=== PATIENT | female | born 1990 | race Caucasian/White ===

== ENCOUNTER 2016-05-13 09:12 | Inpatient (IN) | payer MEDICAID, OTHER ==
[~2016-05-13] VITALS: Ht 172.7 cm; Wt 88.8 kg
[~2016-05-13 09:12] MED LIST: BIRTH CONTROL PILLS; IBUP-1542 PO
[2016-05-13 09:21] VITALS: BP 109/69; PULSE 96; RESP 19; Ht 172.7 cm; Wt 88.8 kg
--- NOTE | 2016-05-13 10:28 | RADRPT ---
PROCEDURE: OB ultrasound for biophysical profile CLINICAL INDICATION: Spotting. . TECHNIQUE: Multiple sonographic images of the pelvis were obtained. Transabdominal view of the gr avid uterus are available for review. The images were reviewed on a PACS workstation. COMPARISON: None available FINDINGS: breathing movement = 2/2 tone = 2/2 motion = 2/2 KARLENE = 2/2 KARLENE = 11.4 cm Single live intrauterine with cardiac activity. heart rate equals 128 beats p er minute. Presentation is cephalic. The placenta is posterior. IMPRESSION: 1. Single viable intrauterine gestation. 2. Biophysical profile = 8/8. 3. KARLENE = 11.4 cm. RPTAT: KK .Sai Hodge MD, MD Date Time Electronically viewed and signed by .Sai Hodge MD, MD on 05/13/2016 10:27 .B/
--- NOTE | 2016-05-13 10:31 | RADRPT ---
PROCEDURE: US OB - Limited weight. CLINICAL INDICATION: Spotting. . TECHNIQUE: Multiple sonographic images of the pelvis were obtained. Transabdominal imaging only w as performed. The images were reviewed on a PACS workstation. COMPARISON: No prior studies are available for comparison. FINDINGS: There is a single viable intrauterine gestation. Cardiac activity is present with 122 beats per min [place]. There is a cephalic presentation. Measurements were made in order to determine age. Evaluation is limited as the head was very low in the pelvis and head circumference and BPD or not accurately evaluated. The results are as follows: AC = 30.98 cm FL = 6.83 .cm Estimated gestational age of approximately 35 weeks 0 days +/ - 2 weeks 3 days by ultrasound evalua tion The estimated date of delivery is 06/17/2016 by ultrasound evaluation. The EFW = 2608 g +/- 417 g. The placenta is posterior. There is no evidence of placenta previa. IMPRESSION: 1. Single viable intrauterine gestation of approximately 35 weeks 0 days with estimated date of del anthony of 06/17/2016 by ultrasound evaluation. 2. The estimated weight is 2608 g (34%) . RPTAT: KK .Sai Hodge MD, MD Date Time Electronically viewed and signed by .Sai Hodge MD, MD on 05/13/2016 10:30 .B/
[2016-05-13 10:42] LABS: BASOPHILS % 0.3 % (0.0-2.0); EOSINOPHILS # 0.1 10^3/ul (0.0-0.5); EOSINOPHILS % 0.6 % (0.0-7.0); HEMOGLOBIN 11.9 g/dl (12.0-16.0); LYMPHOCYTES # 1.3 10^3/ul (0.8-2.9); LYMPHOCYTES % 12.4 % (15.0-51.0); MEAN CORPUSCULAR HEMOGLOBIN 31.6 pg (29.0-33.0); MEAN CORPUSCULAR HGB CONC 34.2 g/dl (32.0-37.0); MEAN CORPUSCULAR VOLUME 92.4 fl (82.0-101.0); MEAN PLATELET VOLUME 7.9 fl (7.4-10.4); MONOCYTE # 0.7 10^3/ul (0.3-0.9); NEUTROPHILS % 79.7 % (39.0-77.0); PLATELET COUNT 262 10^3/UL (140-440); RED BLOOD COUNT 3.78 10^6/ul (4.20-5.40); RED CELL DISTRIBUTION WIDTH 13.6 % (11.5-14.5); UNCORRECTED WBC 10.1 10^3/ul (4.8-10.8); WHITE BLOOD COUNT 10.1 10^3/ul (4.8-10.8)
[2016-05-13 10:43] LABS: CONDITION 1
--- NOTE | 2016-05-13 10:58 | HP ---
Date/Time of Note Date/Time of Note DATE: 05/13/16 TIME: 10:57 OB - History Hx of Present Free Text/Dictation @35+wks GA with labor : 1 Para: 0 Care: Good Care Ultrasounds: Normal mid trimester US Obstetrical Complications: None Medical Complications: None Past Family/Social History * Past Medical, Surgical, Family and Obstetric Histories reviewed from chart. OB Admission Exam Vital Signs Vital Signs Vital Signs Date Time Temp Pulse Resp B/P Pulse Ox O2 Delivery O2 Flow Rate FiO2 05/13/16 09:21 98.6 96 19 109/69 Room Air Physical Exam HEENT: WNL Abdomen: WNL Extremities: Normal Reflexes: Normal Cervical Dilatation: 4cm Effacement: 75% Station: -1 Membranes: Intact Heart Rate: 140's Accelerations: Accelerations Present Decelerations: No Decelerations Contractions on Admission: >10 Minutes Apart Last 72 hours Lab Results CBC & BMP 05/13/16 10:30 OB Assessment/Plan Reason for admission: observation Plan: Expectant Management CHASE LEZAMA M.D. May 13, 2016 10:58
[2016-05-13] MEDS ORDERED: LACTATED RINGER'S 1,000 ML IV PRN (11:15)
[2016-05-13] MEDS ORDERED: BETAMET NA PHOS/AC(6 MG/ML) 5ML INJ ONE (11:23)
[2016-05-13] MEDS: LACTATED RINGER'S 1,000 ML IV SCH ×3 (11:30→23:03)
[2016-05-13] MEDS ORDERED: MISOPROSTOL 200 MCG TAB PR PRN (11:30)
[2016-05-13] MEDS ORDERED: OXYTOCIN 30 UNITS/LR 500 ML IV SCH (11:30)
[2016-05-13] MEDS ORDERED: CARBOPROST 250 MCG INJ IM PRN (11:30)
[2016-05-13] MEDS ORDERED: METHYLERGONOVINE 0.2 MG INJ IM PRN (11:30)
[2016-05-13] MEDS ORDERED: OXYTOCIN 30 UNITS/LR 500 ML IV PRN (11:30)
[2016-05-13] MEDS ORDERED: LIDOCAINE 1% (MPF) 30 ML INJ INJ PRN (11:30)
[2016-05-13] MEDS ORDERED: BUTORPHANOL 2 MG INJ IV PRN (11:30)
[2016-05-13] MEDS ORDERED: IBUPROFEN 600 MG TAB PO PRN (11:30)
[2016-05-13] MEDS ORDERED: BETAMET NA PHOS/AC(6 MG/ML) 5ML INJ IM SCH ×2 (11:30→23:30)
[2016-05-13] MEDS ORDERED: AMPICILLIN 2 GM/NS (PMX) 100 ML IV ONE (11:30)
[2016-05-13 12:13] LABS: INR 0.96; PROTIME 12.8 Sec (12.2-14.2)
[2016-05-13 12:14] LABS: PARTIAL THROMBOPLASTIN TIME 28.3 Sec (25.0-35.0)
[2016-05-13 16:46] LABS: BARBITURATES NEGATIVE (NEGATIVE); BENZODIAZEPINES NEGATIVE (NEGATIVE); CANNABINOIDS NEGATIVE (NEGATIVE); COCAINE NEGATIVE (NEGATIVE); OPIATES NEGATIVE (NEGATIVE)
[2016-05-13] MEDS: AMPICILLIN 1 GM/NS (PMX) 50 ML IV SCH ×3 (19:00→23:03)
[2016-05-14] MEDS: AMPICILLIN 1 GM/NS (PMX) 50 ML IV SCH ×6 (03:16→23:24)
[2016-05-14] MEDS: LACTATED RINGER'S 1,000 ML IV SCH ×2 (06:33→17:00)
[2016-05-14] MEDS ORDERED: DEXTROSE 5%-LR 1,000 ML IV SCH (14:00)
[2016-05-15] MEDS: LACTATED RINGER'S 1,000 ML IV SCH ×3 (02:25→21:03)
[2016-05-15] MEDS: AMPICILLIN 1 GM/NS (PMX) 50 ML IV SCH ×6 (04:11→23:04)
[2016-05-15] MEDS ORDERED: AMPICILLIN 2 GM/NS (PMX) 100 ML ONE (06:19)
[2016-05-16] MEDS: AMPICILLIN 1 GM/NS (PMX) 50 ML IV SCH ×6 (03:31→20:19)
[2016-05-16] MEDS: LACTATED RINGER'S 1,000 ML IV SCH ×3 (05:08→23:17)
--- NOTE | 2016-05-16 21:20 | QN ---
Documentation Comment patient seen and evaluated no complaints vs stable ab gravid nt extremity no edema no calf tenderness ve 5-6/90/-2 fhr cat 1 toco irregular ctx a/ iup at 36 wks ga, no cervical change since yesterday, advance cervical dilation p/ vaginal culture for gbs transfer to antepartum BARRON MOREIRA MD May 16, 2016 21:20
[2016-05-17] VITALS (8 sets, daily range): BP systolic 100–127; BP diastolic 57–73; PULSE 68–130; RESP 18–20
[2016-05-17] MEDS ORDERED: FENTAnyl 2MCG/ML-ROPIV 0.2% 100 ML ONE (05:04)
[2016-05-17] MEDS: LACTATED RINGER'S 1,000 ML IV SCH ×2 (05:11→19:38)
[2016-05-17] MEDS: AMPICILLIN 1 GM/NS (PMX) 50 ML IVPB SCH ×3 (05:33→19:39)
[2016-05-17] MEDS: LACTATED RINGER'S 1,000 ML IV* SCH ×2 (07:06→19:38)
--- NOTE | 2016-05-17 07:06 | LDN ---
Date/Time of Note Date/Time of Note DATE: 05/17/16 TIME: 07:05 Delivery Summary Placenta Delivered: Spontaneously Meconium: none Perineum intact?: No Perineal laceration: 1 Perineal laceration repair: 1st degree vaginal laceration repair with 2-0 chromic Anesthesia type: Epidural Estimated blood loss: 250 Sponge & Needle done & correct: Yes All needle counts correct: Yes Any foreign bodies felt in the: No Problems: Infant Delivery Information Sex Sex: male Apgars 1 Minute: 9 5 Minute: 9 Suctioning Nose & mouth suctioned at ricardo: No Delee suction performed: No Umbilical Cord Umbilical cord with: 3 Vessels Cord presentations: no nuchal cord Cord Blood was obtained: Yes BARRON MOREIRA MD May 17, 2016 07:06
[2016-05-17] MEDS: OXYTOCIN 30 UNITS/LR 500 ML IV SCH ×2 (07:20→11:47)
[2016-05-17] MEDS ORDERED: MISOPROSTOL 200 MCG TAB PR PRN (07:30)
[2016-05-17] MEDS ORDERED: LANOLIN 7 GM TUBE TOP PRN (07:30)
[2016-05-17] MEDS ORDERED: BENZOCAINE 20% 56 ML SPRAY TOP PRN (07:30)
[2016-05-17] MEDS ORDERED: DIBUCAINE 1% 30 GM OINT PR PRN (07:30)
[2016-05-17] MEDS ORDERED: OXYTOCIN 30 UNITS/LR 500 ML IV PRN (07:30)
[2016-05-17] MEDS ORDERED: ONDANSETRON 4 MG INJ IV PRN ×2 (07:30→08:30)
[2016-05-17] MEDS ORDERED: SENNA/DOCUSATE NA (8.6MG/50MG) TAB PO PRN (07:30)
[2016-05-17] MEDS ORDERED: OXYCODONE/ASPIRIN (4.88/325) TAB PO PRN ×2 (07:30)
[2016-05-17] MEDS ORDERED: METHYLERGONOVINE 0.2 MG INJ IM PRN (07:30)
[2016-05-17] MEDS ORDERED: ONDANSETRON 4 MG TAB PO PRN (07:30)
[2016-05-17] MEDS ORDERED: CARBOPROST 250 MCG INJ IM PRN (07:30)
[2016-05-17] MEDS ORDERED: WITCH HAZEL/GLYCERIN PAD PR PRN (07:30)
[2016-05-17] MEDS ORDERED: HYDROmorphONE 1 MG/ML SYG IV PRN ×2 (08:30)
[2016-05-17] MEDS ORDERED: DIPHENHYDRAMINE 50 MG INJ IV PRN (08:30)
[2016-05-17] MEDS ORDERED: KETOROLAC 30 MG INJ IV PRN (08:30)
[2016-05-17] MEDS ORDERED: NALOXONE (0.4 MG/ML) INJ IV PRN (08:30)
[2016-05-17] MEDS ORDERED: FENTAnyl 2MCG/ML-ROPIV 0.2% 100 ML BAG EPI SCH (08:30)
[2016-05-17] MEDS: MULTIVIT/MIN/FOLATE/IRON/PREN TAB PO SCH (11:47)
[2016-05-17] MEDS: SENNA/DOCUSATE NA (8.6MG/50MG) TAB PO SCH ×2 (11:47→21:00)
[2016-05-17] MEDS: IBUPROFEN 600 MG TAB PO SCH (18:17)
[2016-05-18 04:00] VITALS: BP 97/59; PULSE 83; RESP 16
[2016-05-18 06:12] LABS: BASOPHILS % 0.4 % (0.0-2.0); EOSINOPHILS # 0.1 10^3/ul (0.0-0.5); EOSINOPHILS % 0.7 % (0.0-7.0); HEMATOCRIT 33.3 % (37.0-47.0); HEMOGLOBIN 11.4 g/dl (12.0-16.0); LYMPHOCYTES # 1.9 10^3/ul (0.8-2.9); LYMPHOCYTES % 16.6 % (15.0-51.0); MEAN CORPUSCULAR HEMOGLOBIN 31.8 pg (29.0-33.0); MEAN CORPUSCULAR VOLUME 93.4 fl (82.0-101.0); MONOCYTE # 0.7 10^3/ul (0.3-0.9); MONOCYTES % 6.3 % (0.0-11.0); NEUTROPHIL # 8.5 10^3/ul (1.6-7.5); PLATELET COUNT 249 10^3/UL (140-440); RED BLOOD COUNT 3.57 10^6/ul (4.20-5.40); RED CELL DISTRIBUTION WIDTH 13.4 % (11.5-14.5); UNCORRECTED WBC 11.2 10^3/ul (4.8-10.8); WHITE BLOOD COUNT 11.2 10^3/ul (4.8-10.8)
[2016-05-18 06:17] LABS: CONDITION 1
[2016-05-18] MEDS: SENNA/DOCUSATE NA (8.6MG/50MG) TAB PO SCH ×2 (08:06→20:35)
[2016-05-18] MEDS: MULTIVIT/MIN/FOLATE/IRON/PREN TAB PO SCH (08:06)
[2016-05-18 08:18] VITALS: BP 98/63; PULSE 69; RESP 20
--- NOTE | 2016-05-18 11:21 | PD.PPDC ---
[facility] Discharge Instruction Condition Patient Condition: Fair Diet Diet: Resume Regular Diet Activity/Restrictions Restrictions: No Sexual Activity Nothing in the Vagina No [place] No Tampons, douche Follow-up Follow-up with Physician: 3, Week/Weeks Return to clinic for MANAGER PERSONNEL SELECTION Instructions: Fever greater than 101 Chills Worsening abdominal pain Excessive Vaginal Bleeding More than 2 pads per hour Unable to tolerate diet OB Instructions: Breast Tenderness Depression Blurried Vision Headache Surgical Instructions: Incisional Drainage Incisional Redness BARRON MOREIRA MD May 18, 2016 11:21
[2016-05-18] MEDS: IBUPROFEN 600 MG TAB PO SCH ×2 (12:09→17:30)
[2016-05-18] MEDS ORDERED: LANOLIN 7 GM TUBE TOP PRN (15:00)
[2016-05-18 15:57] VITALS: BP 99/56; PULSE 77; RESP 20
[2016-05-18] MEDS: LACTATED RINGER'S 1,000 ML IV* SCH ×4 (19:24→20:35)
[2016-05-18] MEDS: AMPICILLIN 1 GM/NS (PMX) 50 ML IVPB SCH ×6 (19:24→20:35)
[2016-05-18] MEDS: LACTATED RINGER'S 1,000 ML IV SCH ×4 (19:24→20:34)
[2016-05-18 20:15] VITALS: BP 110/68; PULSE 83; RESP 16
[2016-05-19] MEDS: AMPICILLIN 1 GM/NS (PMX) 50 ML IVPB SCH (03:01)
[2016-05-19 03:55] VITALS: BP 96/52; PULSE 86; RESP 18
[2016-05-19] MEDS: IBUPROFEN 600 MG TAB PO SCH ×2 (05:53→12:06)
[2016-05-19 08:00] VITALS: BP 104/63; PULSE 96; RESP 16
[2016-05-19] MEDS: SENNA/DOCUSATE NA (8.6MG/50MG) TAB PO SCH (09:00)
[2016-05-19] MEDS: MULTIVIT/MIN/FOLATE/IRON/PREN TAB PO SCH (09:05)
== END 2016-05-19 18:09 | disposition home or self-care (01) | DRG 775 ==
LOC: OBT 09:12 → L-D 09:13 → OBT 11:18 → L-D 15:18 → PP1 05-17 09:25
PROVIDERS: ADMIT Obstetrics & Gynecology; ATTEND Obstetrics & Gynecology
PROC: 10E0XZZ Delivery of Products of Conception, External Approach (ICD-10-PCS; principal; 2016-05-17)
PROC: 0HQ9XZZ Repair Perineum Skin, External Approach (ICD-10-PCS; 2016-05-17)
DX: O60.14X0 Preterm labor third trimester with preterm delivery third trimester, not applicable or unspecified (principal); O70.0 First degree perineal laceration during delivery; Z3A.35 35 weeks gestation of pregnancy; Z37.0 Single live birth
CPT/HCPCS: 62319; 76815; 76818; 80307; 85025; 85610; 85730; 86592; 86900; 86901; 87081; 99464; G0463; J0290; J0702; J2590; J3010; J7120; J7121

== ENCOUNTER 2017-03-14 10:25 | Emergency (ER) | payer OTHER ==
[~2017-03-14] VITALS: Ht 162.6 cm; Wt 88.8 kg
[2017-03-14 10:30] VITALS: Ht 162.6 cm; Wt 88.8 kg
[2017-03-14] MEDS ORDERED: HYDROCODONE/APAP (5/325) TAB PO ONE (11:00)
[2017-03-14] MEDS ORDERED: FAMOTIDINE 20 MG TAB PO ONE (11:00)
--- NOTE | 2017-03-14 11:45 | ERD ---
ER Documentation Chief Complaint Chief Complaint Complains of abdominal pain since last night HPI This is a 27-year-old female presents emergency department today complaining of upper abdominal pain that started last night. Patient states she did not take any medication and just decided to come to the emergency department. Denies any fever chills, vomiting, dysuria. ROS All systems reviewed and are negative except as per history of present illness. Medications Home Meds Active Scripts Famotidine* (Pepcid*) 20 Mg Tablet, 20 MG PO BID for 10 Days, TAB Prov:ALYX LAKE PA-C 03/14/17 Acetaminophen* (Tylophen*) 500 Mg Capsule, 1 CAP PO Q6H Y for PAIN AND OR ELEVATED TEMP, #30 CAP Prov:ALYX LAKE PA-C 03/14/17 Allergies Allergies: Coded Allergies: No Known Allergies (Verified Allergy, Mild, 11/29/12) PMhx/Soc Medical and Surgical Hx: pt denies Medical Hx, pt denies Surgical Hx History of Surgery: No Anesthesia Reaction: No Hx Neurological Disorder: No Hx Respiratory Disorders: No Hx Cardiac Disorders: No Hx Psychiatric Problems: Yes (anxiety) Hx Miscellaneous Medical Probl: No Hx Alcohol Use: No Hx Substance Use: No Hx Tobacco Use: No Smoking Status: Never smoker Physical Exam Vitals Vital Signs Date Time Temp Pulse Resp B/P Pulse Ox O2 Delivery O2 Flow Rate FiO2 03/14/17 10:30 97.8 95 20 119/75 98 Physical Exam Const: NAD Head: Atraumatic Eyes: Normal Conjunctiva ENT: Normal External Ears, Nose and Mouth. Neck: Full range of motion..~ No meningismus. Resp: Clear to auscultation bilaterally Cardio: Regular rate and rhythm, no murmurs Abd: Soft, gastric and left upper quadrant pain, non distended. Normal bowel sounds no right upper quadrant pain. No lower abdominal pain or tenderness at McBurney's. Skin: No petechiae or rashes Back: No midline or flank tenderness Ext: No cyanosis, or edema Neur: Awake and alert Psych: Normal Mood and Affect Result Diagram: 03/14/17 1113 03/14/17 1113 Results 24 hrs Laboratory Tests Test 03/14/17 11:09 03/14/17 11:13 Urine Color YELLOW Urine Clarity CLEAR Urine pH 6.0 Urine Specific [place] 1.018 Urine Ketones NEGATIVEmg/dL Urine Nitrite NEGATIVEmg/dL Urine Bilirubin NEGATIVEmg/dL Urine Urobilinogen NEGATIVEmg/dL Urine Leukocyte Esterase NEGATIVELeu/ul Urine Hemoglobin NEGATIVEmg/dL Urine Glucose NEGATIVEmg/dL Urine Total Protein NEGATIVEmg/dl White Blood Count 7.810^3/ul Red Blood Count 4.5610^6/ul Hemoglobin 14.0g/dl Hematocrit 42.7% Mean Corpuscular Volume 93.6fl Mean Corpuscular Hemoglobin 30.7pg Mean Corpuscular Hemoglobin Concent 32.8g/dl Red Cell Distribution Width 13.2% Platelet Count 19766^3/UL Mean Platelet Volume 9.1fl Neutrophils % 71.1% Lymphocytes % 20.7% Monocytes % 6.1% Eosinophils % 1.0% Basophils % 0.8% Nucleated Red Blood Cells % 0.0/100WBC Neutrophils # 5.610^3/ul Lymphocytes # 1.610^3/ul Monocytes # 0.510^3/ul Eosinophils # 0.110^3/ul Basophils # 0.110^3/ul Nucleated Red Blood Cells # 0.010^3/ul Sodium Level 145mmol/L Potassium Level 3.9mmol/L Chloride Level 105mmol/L Carbon Dioxide Level 27mmol/L Anion Gap 17 Blood Urea Nitrogen 12mg/dl Creatinine 0.60mg/dl Glucose Level 67mg/dl Calcium Level 8.9mg/dl Total Bilirubin 1.1mg/dl Direct Bilirubin 0.00mg/dl Indirect Bilirubin 1.1mg/dl Aspartate Amino Transf (AST/SGOT) 28IU/L Alanine Aminotransferase (ALT/SGPT) 40IU/L Alkaline Phosphatase 96IU/L Total Protein 8.1g/dl Albumin 4.6g/dl Globulin 3.50g/dl Albumin/Globulin Ratio 1.31 Lipase 45U/L Current Medications Medications (Trade) Dose Ordered Sig/David Route PRN Reason Start Time Stop Time Status Last Admin Dose Admin Famotidine (Pepcid) 20 mg ONCE ONCE PO 03/14/17 11:00 03/14/17 11:01 DC 03/14/17 11:14 Acetaminophen/ Hydrocodone Bitart ([place] (5/325)) 1 tab ONCE ONCE PO 03/14/17 11:00 03/14/17 11:01 DC 03/14/17 11:14 Procedures/MDM This a 27-year-old female who presents the emergency department today complaining of upper abdominal pain that started last night. On physical exam patient had epigastric and left upper quadrant pain. She does not have any right upper quadrant pain at this time do not feel that she requires imaging however I did obtain laboratory work. Laboratory workup no elevated white blood cell count. She is not anemic. Platelets are within normal limits. Sodium is very mildly elevated otherwise electrolytes are within normal limits. Glucose is mildly decreased at 67. Liver enzymes are within normal limits. Lipase is within normal limits. UA negative for infection. Urine test is negative Patient has epigastric and left upper quadrant abdominal pain of uncertain etiology. I have low suspicion for acute surgical abdomen. There is no evidence of acute pancreatitis. Patient has no right upper quadrant tenderness and no lower abdominal pain or tenderness at McBurney's. Patient was given [place] and Pepcid here in the emergency department reporting her pain is improved. Patient will be given a prescription for Pepcid and Tylenol for home. Discharge patient indicated she was feeling dizzy and nauseated. This is likely the [place] however patient's glucose was 67. I did have the patient lay down in a recliner and she was given juice and crackers. At this time the patient is stable for discharge and outpatient management. Patient should follow up with their PCP in the next 1-2 days. They may return to the emergency department sooner for any persistent or worsening of symptoms. Patient understood and agreed with the plan. Departure Diagnosis: Primary Impression: Abdominal pain Abdominal location: left upper quadrant Qualified Code: R10.12 - Left upper quadrant pain Condition: Fair ALYX LAKE PA-C Mar 14, 2017 11:45
[2017-03-14] MEDS ORDERED: FAMO-96 PO (12:08)
[2017-03-14] MEDS ORDERED: ACET500C5 PO (12:08)
== END 2017-03-14 12:35 | disposition home or self-care (01) ==
LOC: FTE 10:25
DX: R10.12 Left upper quadrant pain (principal)
CPT/HCPCS: 80053; 81003; 82962; 83690; 85025; Z7502; Z7610; 99283

== ENCOUNTER 2017-03-17 17:56 | Emergency (ER) | payer OTHER ==
[~2017-03-17] VITALS: Ht 172.7 cm; Wt 89.1 kg
[~2017-03-17 17:56] MED LIST changes: +ACET500C5 PO; -BIRTH CONTROL PILLS; +FAMO-96 PO; -IBUP-1542 PO
[2017-03-17 18:39] VITALS: Ht 172.7 cm; Wt 89.1 kg
--- NOTE | 2017-03-17 21:23 | ERD ---
ER Documentation Chief Complaint Chief Complaint bib self, cc: anxiety, numbness in hands, sweating, HPI 27-year-old otherwise healthy female presents complaining of paresthesias in her left upper extremity as well as in her lips and at times she feels short of breath and has chest tightness. She does have a history of anxiety and believes is most likely anxiety related. She has no cardiac past medical history. She also states she feels lightheaded and gets headaches. She takes Motrin for her headaches and it helps. ROS All systems reviewed and are negative except as per history of present illness. Medications Home Meds Active Scripts Meclizine Hcl* (Meclizine Hcl*) 25 Mg Tablet, 25 MG PO Q8H Y for DIZZINESS, #30 TAB Prov:SEA OSBORNE PA-C 03/17/17 Lorazepam* (Lorazepam*) 1 Mg Tablet, 1 MG PO Q8, #10 TAB Prov:SEA OSBORNE PA-C 03/17/17 Famotidine* (Pepcid*) 20 Mg Tablet, 20 MG PO BID for 10 Days, TAB Prov:ALYX LAKE PA-C 03/14/17 Acetaminophen* (Tylophen*) 500 Mg Capsule, 1 CAP PO Q6H Y for PAIN AND OR ELEVATED TEMP, #30 CAP Prov:ALYX LAKE PA-C 03/14/17 Allergies Allergies: Coded Allergies: No Known Allergies (Verified Allergy, Mild, 11/29/12) PMhx/Soc Medical and Surgical Hx: pt denies Surgical Hx History of Surgery: No Anesthesia Reaction: No Hx Neurological Disorder: No Hx Respiratory Disorders: No Hx Cardiac Disorders: No Hx Psychiatric Problems: Yes (anxiety) Hx Miscellaneous Medical Probl: No Hx Alcohol Use: No Hx Substance Use: No Hx Tobacco Use: No Smoking Status: Never smoker FmHx Family History: No diabetes Physical Exam Vitals Vital Signs Date Time Temp Pulse Resp B/P Pulse Ox O2 Delivery O2 Flow Rate FiO2 03/17/17 18:39 98.7 109 18 147/80 100 Physical Exam INITIAL VITAL SIGNS: Reviewed by me GENERAL: Awake, alert and oriented x 4, well appearing, nontoxic, speaking in full sentences. No acute distress HEAD: Atraumatic NECK: Supple. No masses. Full range of motion. No meningismus. No midline tenderness. EYES: EOMI. PERRL. THROAT: No tonilar erythema or edema. No exudates. Uvula midline. No kissing tonsils. RESPIRATORY: Clear to auscultation bilaterally. Symmetric chest wall rise. No wheezing or rales. No accessory muscle use. CV: Regular rate and rhythm. No murmurs, rubs, or gallops. EXTREMITIES: No clubbing or cyanosis. No edema. Moving all extremities normally. NEUROLOGIC: Normal mental status and speech. Face is symmetric. Moves all extremities equally. Motor and sensory distally intact. Normal coordination. Ambulates with a strong steady gait. Results 24 hrs Laboratory Tests Test 03/17/17 21:40 Bedside Glucose 95mg/dL Current Medications Medications (Trade) Dose Ordered Sig/David Route PRN Reason Start Time Stop Time Status Last Admin Dose Admin Lorazepam (Ativan) 1 mg ONCE ONCE PO 03/17/17 21:30 03/17/17 21:31 DC Procedures/MDM 27-year-old female presents with what appears to be anxiety reaction. She has history of anxiety and she has had similar attacks. She was given Ativan. EKG , Accu-Chek, and urine test was checked. EKG normal sinus rhythm with a rate of 85. She declined the Ativan. Urine test negative. Accu-Chek 95. Patient is discharged with meclizine and Ativan. Patient counseled regarding my diagnostic impression and care plan. Prior to discharge all questions answered. Pt agrees with treatment plan and understands strict return precautions. Pt is instructed to follow up with primary care provider within 24-48 hours. Precautionary instructions provided including instructions to return to the ER if not improving or for any worsening or changing symptoms or concerns. Departure Diagnosis: Primary Impression: Anxiety Condition: Stable SEA OSBORNE PA-C Mar 17, 2017 21:23
[2017-03-17] MEDS ORDERED: MECL-77 PO (21:28)
[2017-03-17] MEDS ORDERED: LORA1TAB PO (21:28)
[2017-03-17] MEDS ORDERED: LORAZEPAM 1 MG TAB PO ONE (21:30)
== END 2017-03-17 21:50 | disposition home or self-care (01) ==
LOC: FTE 17:56
DX: F41.1 Generalized anxiety disorder (principal); R07.9 Chest pain, unspecified
CPT/HCPCS: 82962; 93005; Z7502

== ENCOUNTER 2017-05-12 02:48 | Emergency (ER) | END 2017-05-12 07:56 | disposition home or self-care (01) ==

== ENCOUNTER 2019-01-07 19:04 | Emergency (ER) | payer MEDICAID, OTHER ==
[~2019-01-07] VITALS: Ht 172.7 cm; Wt 98.3 kg
[~2019-01-07 19:04] MED LIST changes: +CEPH-443 PO; +LORA1TAB PO; +MAG-19 PO; +MECL-77 PO
[2019-01-07 19:07] VITALS: BP 133/76; PULSE 98; RESP 16; Ht 172.7 cm; Wt 98.3 kg
== END 2019-01-07 21:58 | disposition home or self-care (01) ==
LOC: FTE 19:04
DX: O20.9 Hemorrhage in early pregnancy, unspecified (principal); R10.2 Pelvic and perineal pain; Z3A.13 13 weeks gestation of pregnancy
CPT/HCPCS: 36415; 76801; 81001; 84702; 85025; 86900; 86901; Z7502